=== PATIENT | female | born 2000 | race Caucasian/White ===

== ENCOUNTER 2019-04-18 10:50 | Outpatient (CLI) | payer OTHER, MEDICAID, SELFPAY ==
[2019-04-18 11:19] LABS: Absolute Basophil Count 0.04 k/cumm (0.0-0.2); Absolute Eosinophil Count 0.23 k/cumm (0.0-0.7); Absolute Lymphocyte Count 2.47 k/cumm (1.2-3.4); Absolute Monocyte Count 0.66 k/cumm (0.11-0.7); Basophils % 0.6; Eosinophils % 3.3; HCT 39.5 % (36.0-46.0); HGB 12.7 g/dL (12.0-15.5); Lymphocytes % 35.8; Mean Corp. HGB Concentration 32.2 g/dL (32.0-36.0); Mean Corpuscular Hemoglobin 25.1 pg (27.0-33.0); Mean Corpuscular Volume 78.1 fL (80-95); Mean Platelet Volume 10.2 fL (8.0-11.0); Monocytes % 9.6; Neutrophils % 50.7; Platelet Count 391 x1000/uL (130-400); RBC 5.06 m/cumm (4.00-5.20); RBC Distribution Width 15.1 % (11.7-14.6)
[2019-04-18 12:00] LABS: ALT 17 U/L (14-59); AST 12 U/L (15-37); Albumin 4.3 g/dL (3.4-5.0); Alkaline Phosphatase 101 U/L (46-116); Anion Gap 12.5 mmol/L (3-11); BUN 14 mg/dL (7-18); Bilirubin, Total 0.3 mg/dL (0.2-1.0); CO2 27.5 mmol/L (21.0-32.0); CREATININE 0.73 mg/dL (0.55-1.02); Chloride 103 mmol/L (98-107); Glucose 69 mg/dL (74-106); Potassium 4.4 mmol/L (3.5-5.1); Sodium 143 mmol/L (136-145); Total Protein 7.7 g/dL (6.4-8.2)
[2019-04-21 12:48] LABS: Lamotrigine 3.8 mcg/mL (2.5 - 15.0)
== END 2019-04-18 11:10 ==
PROVIDERS: PCP Specialist/Technologist Athletic Trainer; Visit Provider Otolaryngology Otology & Neurotology
DX: R56.9 Unspecified convulsions (principal); Z79.899 Other long term (current) drug therapy; Z51.81 Encounter for therapeutic drug level monitoring
CPT/HCPCS: 36415; 80053; 80175; 85025

== ENCOUNTER 2021-05-25 15:20 | Outpatient (REF) | payer MEDICAID, SELFPAY ==
[2021-05-25 18:58] LABS: TSH 2.24 uIU/mL (0.36-3.74)
[2021-05-25 19:02] LABS: HCT 42.6 % (36.0-46.0); HGB 13.5 g/dL (11.2-15.7); MCH 26.9 pg (27.0-33.0); MCHC 31.7 % (32.0-36.0); MPV 11.5 fL (8.0-11.0); Platelet Count 148 10^3/uL (130-400); RBC 5.01 10^6/uL (3.93-5.22); RDW 13.1 % (11.7-14.6); WBC 7.14 10^3/uL (4.4-10.8)
[2021-05-30 15:47] LABS: 1,25-Dihydroxyvitamin D 33 pg/mL (18-78)
== END 2021-05-25 15:21 | disposition home or self-care (01) ==
LOC: NCHCN 15:20
PROVIDERS: PCP Specialist/Technologist Athletic Trainer; Visit Provider Nurse Practitioner Family
DX: R53.83 Other fatigue (principal); E03.9 Hypothyroidism, unspecified
CPT/HCPCS: 85027; 82652; 84443

== ENCOUNTER 2022-10-15 12:30 | Emergency (ER) | payer MEDICAID, SELFPAY ==
[2022-10-15 12:54] VITALS: BP 122/77; PULSE 81; RESP 20; TEMP 37; O2SAT 99
--- NOTE | 2022-10-15 13:00 | RT.EKG_ITS ---
APPROVED REPORT Exam: Resting ECG Reason for Exam: Dizzy Patient Location: E HR:78 bpm ECG Measurements Heart Rate 78 AXIS WI 163 P 39 QRSd 79 QRS 70 QT 369 T 59 QTc 420 Conclusion Sinus rhythm...normal P axis, V-rate 60- 99 Narrow complex normal sinus rhythm at a rate of 78. Intervals within normal limits. T wave flatteni ng in aVL. No acute ST segment abnormalities. No T wave inversions. No prior for comparison.
--- NOTE | 2022-10-15 13:02 | ED.GENADUL_ITS ---
Discharge Plan Disposition Patient Disposition: Home Discharge Details Clinical Impression: Dizziness Primary Care Provider: None,None ED Provider: Darrell Mix Home Meds and New Rx's Prescriptions: New meclizine 25 mg tablet 25 mg PO BID PRNQty: 7 0RF Continued sertraline 50 MG tablet 50 mg PO DAILY Patient Comments: TAKE 150 MG DAILY Rx Instructions: Pt not taking levothyroxine 75 MCG tablet 75 mcg PO ONCE Qty: 30 lamotrigine 25 MG tablet 25 mg PO DAILY Qty: 90 Patient Comments: 100 MG IN AM AND 200 MG AT HS Rx Instructions: 4 TABS IN AM AND 6 AT HS albuterol sulfate [ProAir HFA] 8.5 GM HFA aerosol inhaler 1 - 2 puff Inhalation Q4H PRN cholecalciferol (vitamin D3) [Vitamin D3] 2,000 UNIT capsule 2,000 unit PO DAILY Discharge Instructions Instructions: Dizziness (ED) Additional Instructions: Please read all of the information that accompanies these instructions. You were seen in the emergency department for your dizziness. Your EKG shows no signs of any dangerous cardiac rhythms.. Please schedule an appointment with your primary care provider later this week. Please return to the emergency department if develop any weakness or confusion or vomiting. You may attempt treatment at home with this medication for dizziness. For your pain please take medications as follows: 1. Take acetaminophen (Tylenol), 1,000 mg (two 500 mg tabs) every 6 hours 2. Take ibuprofen (Advil), 400 mg every 6 hours. Discharge Data Discharge Date/Time-TO BE ENTERED AT DEPARTURE: 10/15/22 14:14 Medical Decision Making This is an overall very well-appearing normothermic and not tachycardic 22-year-old female with dizziness and generalized weakness and reassuring exam appropriate for discharge. Patient has no nystagmus at the moment and as result I did not perform the hints exam as my suspicion for posterior circulation was exceedingly low based on the patient's reassuring exam and lack of risk factors. Furthermore she has no dysmetria nor any dysdiadochokinesia. No recent chiropractic manipulation and no neck pain to suggest cervical arterial dissection. No tonic-clonic activity nor breakthrough seizures to suggest status epilepticus so no indication for EEG. Patient is neurologically intact so my suspicion for CVA is exceedingly low so I do not feel that the patient requires an MRI nor would she be a candidate for tPA. She has had no syncope and she denies black or bloody stools. Her ECG is reassuring against any dysrhythmias. Given no nausea nor vomiting my suspicion for acute electrolyte abnormalities is exceedingly low so I did not feel that the patient would benefit from laboratory evaluation. No pain out of proportion to suggest necrotizing soft tissue infection. It is certainly a possibility that her seizure medications have had side effects as she takes lamotrigine and cenobamate which has a common side effect of dizziness and fatigue. Her headache was not sudden onset so my suspicion for subarachnoid hemorrhage is exceedingly low as I did not feel that the patient required a CT head. I offered Galina-Hallpike manuever to attempt to treat peripheal vertigo but patient declined. Will discharge with an empiric trial of expectant outpatient management along with meclizine as needed for symptoms. She does have a mild headache at the moment which we will treat with acetaminophen and ibuprofen. ECG: Narrow complex normal sinus rhythm at a rate of 78. Intervals within normal limits. T wave flattening in aVL. No acute ST segment abnormalities. No T wave inversions. No prior for comparison. No acute injury pattern. HPI General Date/Time Provider Initiated Documentation: 10/15/22 13:02 . HPI Narrative: This is a 22-year-old female with history of seizure disorder on outpatient antiseizure medications arriving to the emergency department in the setting of dizziness and weakness that began last night. Patient reports no recent falls. She has been adherent with her medications. This morning at 9 AM she developed a mild left-sided headache. She has prior history of migraine headaches. She did not fall or strike her head. She has not had any syncope. She denies chest pain abdominal pain shortness of breath. She has not been nauseous nor vomiting. She had 1 beer to drink last night. She denies routine ethanol. She has had no recent chiropractic manipulation. She says that her vertigo feels as if the room is intermittently spinning. It is occasionally worse when she turns her head to the side. She has not noticed any focal areas of weakness. She has not attempted treatment at home yet for her headache. She did tolerate p.o. eggs and triplett this morning with toast. She follows with neurology at [facility] [place] for her history of seizures. Related Data Home Medications Medication Instructions Recorded Confirmed sertraline 50 mg tablet 50 mg PO DAILY 05/14/12 10/15/22 lamotrigine 25 mg tablet 25 mg PO DAILY #90 tabs 12/24/12 10/15/22 levothyroxine 75 mcg tablet 75 mcg PO ONCE #30 tab-caps 12/24/12 10/15/22 albuterol sulfate 90 mcg/actuation 1 - 2 puff inhalation Q4H PRN 06/29/16 10/15/22 aerosol inhaler (ProAir HFA) cholecalciferol (vitamin D3) 50 2,000 unit PO DAILY 06/29/16 10/15/22 mcg (2,000 unit) capsule (Vitamin D3) meclizine 25 mg tablet 25 mg PO BID PRN #7 tabs 10/15/22 Previous Rx's Medication Instructions Recorded meclizine 25 mg tablet 25 mg PO BID PRN #7 tabs 10/15/22 Allergies Allergy/AdvReac Type Severity Reaction Status Date / Time Sulfa (Sulfonamide Allergy Mild rash Unverified 10/15/22 13:05 Antibiotics) pineapple AdvReac Skin Rash Unverified 10/15/22 13:05 flouride Allergy Mild rash Uncoded 10/15/22 13:05 MELON AdvReac Intermediate MOUTH SORES Uncoded 10/15/22 13:05 ROOTBEER AdvReac Intermediate MOUTH SORES Uncoded 10/15/22 13:05 SPEARMINT AdvReac Intermediate SORE THROAT Uncoded 10/15/22 13:05 PFSH All Active Problems (Updated 10/15/22 @ 13:57 by Darrell Mix MD) Dizziness (Acute) Medical History (Updated 10/15/22 @ 13:57 by Darrell Mix MD) ADHD (attention deficit hyperactivity disorder) Hypothyroidism Learning disability Pilonidal abscess of itzel cleft Seizure Social History Smoking/Tobacco Use Status: Never Smoking risk assessment performed?: Yes Exam Narrative Exam Narrative: General: Well-appearing in no acute distress speaking in complete sentences. Head: Normocephalic, atraumatic. Eye: Pupils equal, round reactive to light. Extraocular eye movements intact. No conjunctival injection. No scleral icterus. Ear, nose, mouth, throat: Grossly normal inspection. Normal voice, handling secretions normally. TMs clear bilaterally. Neck: Trachea midline. Cardiovascular: Well-perfused distal extremities. Respiratory: Nonlabored respiration. Gastrointestinal: Nondistended abdomen. Musculoskeletal: No edema. Moving all 4 extremities spontaneously. Skin: Normal for age and race, grossly normal temperature and turgor. No acute rash. Neurologic: Alert and appropriate, no apparent acute deficits. GCS 15. Cranial nerves II through XII intact grossly. No pronator drift. No dysmetria. No truncal ataxia. No dysdiadochokinesia. 5 out of 5 bilateral upper and lower extremity strength. Psychiatric: Mood and manner are appropriate. Grooming and personal hygiene are appropriate.
[2022-10-15] MEDS: Meclizine 25 MG TAB PO (14:05)
[2022-10-15] MEDS: Ibuprofen 600 MG TAB PO (14:05)
[2022-10-15] MEDS: Acetaminophen 500 MG TAB 1000 MG PO (14:05)
== END 2022-10-15 14:14 | disposition home or self-care (01) ==
PROVIDERS: Emergency Provider Emergency Medicine
DX: R42 Dizziness and giddiness (principal); R51.9 Headache, unspecified; G40.909 Epilepsy, unspecified, not intractable, without status epilepticus; Z79.899 Other long term (current) drug therapy
CPT/HCPCS: 93005; 99283; 93010

== ENCOUNTER 2023-03-14 04:53 | Outpatient (CLI) | payer MEDICAID, SELFPAY ==
[2023-03-14 11:02] LABS: Abs Immature Grans 0.01 10^3/uL (0.0-0.06); Absolute Basophil Count 0.04 10^3/uL (0.0-0.2); Absolute Eosinophil Count 0.87 10^3/uL (0.0-0.7); Absolute Lymphocyte Count 1.95 10^3/uL (1.2-3.4); Absolute Monocyte Count 0.34 10^3/uL (0.1-0.8); Absolute Neutrophil Count 2.89 10^3/uL (1.2-6.7); Basophils % 0.7; Eosinophils % 14.3; HCT 41.4 % (36.0-46.0); HGB 13.5 g/dL (11.2-15.7); Immature Grans % 0.2; MCH 26.7 pg (27.0-33.0); MCHC 32.6 % (32.0-36.0); MCV 82 fL (80-95); MPV 9.6 fL (8.0-11.0); Monocytes % 5.6; Neutrophils % 47.2; Platelet Count 396 10^3/uL (130-400); RBC 5.05 10^6/uL (3.93-5.22); RDW-SD 38.9 fL
[2023-03-14 12:33] LABS: ALT 24 U/L (14-59); AST 18 U/L (15-37); Albumin 4.1 g/dL (3.4-5.0); Alkaline Phosphatase 115 U/L (46-116); Anion Gap 7.1 mmol/L (3-11); BUN 11 mg/dL (7-18); Bilirubin, Total 0.2 mg/dL (0.2-1.0); CO2 27.9 mmol/L (21.0-32.0); CREATININE 0.8 mg/dL (0.55-1.02); Calcium 9.1 mg/dL (8.5-10.1); Chloride 103 mmol/L (98-107); Estimated GFR 105.45 (mL/min/1.73m2); Glucose 101 mg/dL (74-106); Potassium 3.9 mmol/L (3.5-5.1); Sodium 138 mmol/L (136-145); TSH 1.22 uIU/mL (0.36-3.74); Total Protein 8.3 g/dL (6.4-8.2)
[2023-03-14 12:47] LABS: Vitamin D 25 Total 38.2 ng/mL (30-100)
[2023-03-16 12:30] LABS: Lamotrigine 11.5 mcg/mL (3.0-15.0)
== END 2023-03-14 04:54 | disposition home or self-care (01) ==
LOC: LBO 04:53
PROVIDERS: Visit Provider Psychiatry & Neurology Neurology
DX: D80.2 Selective deficiency of immunoglobulin A [IgA] (principal); Z83.2 Family history of diseases of the blood and blood-forming organs and certain disorders involving the immune mechanism; G40.919 Epilepsy, unspecified, intractable, without status epilepticus; R53.82 Chronic fatigue, unspecified; F32.A Depression, unspecified
CPT/HCPCS: 36415; 80053; 80175; 82306; 84443; 85025

== ENCOUNTER 2024-05-25 16:55 | Outpatient (REF) | payer MEDICAID, SELFPAY ==
[2024-05-25 19:31] LABS: Absolute Basophil Count 0.04 10^3/uL (0.0-0.2); Absolute Eosinophil Count 0.26 10^3/uL (0.0-0.7); Absolute Lymphocyte Count 1.97 10^3/uL (1.2-3.4); Absolute Neutrophil Count 2.41 10^3/uL (1.2-6.7); Basophils % 0.8 %; Eosinophils % 5.2 %; HCT 40.7 % (36.0-46.0); Lymphocytes % 39.6 %; MCH 26.4 pg (27.0-33.0); MCHC 31.9 % (32.0-36.0); MCV 83 fL (80-95); MPV 10.5 fL (8.0-11.0); Neutrophils % 48.4 %; Platelet Count 304 10^3/uL (130-400); RBC 4.92 10^6/uL (3.93-5.22); RDW 13.3 % (11.7-14.6); RDW-SD 40.2 fL; WBC 4.98 10^3/uL (4.4-10.8)
[2024-05-25 20:08] LABS: TSH (W/Ref FT4) 1.24 uIU/mL (0.36-3.74); Vitamin D 25 Total 30 ng/mL (30-100)
[2024-05-25 20:29] LABS: FREE T4 1.47 ng/dL (0.76-1.46)
== END 2024-05-25 16:56 | disposition home or self-care (01) ==
LOC: NCHCN 16:55
PROVIDERS: Visit Provider Nurse Practitioner Family
DX: R53.83 Other fatigue (principal); E03.9 Hypothyroidism, unspecified
CPT/HCPCS: 82306; 84439; 84443; 85025